=== PATIENT | male | born 1960 | race Caucasian/White ===

== ENCOUNTER 2017-03-02 15:20 | Inpatient (IN) | payer MEDICARE ==
[~2017-03-02] VITALS: Ht 180.3 cm; Wt 86.6 kg
--- NOTE | 2017-03-02 15:20 | NUR ---
Patient is here in our ER dept for admission to our [facility] mental health unit room 145C, pending medical clearance by our ER doctor.
[2017-03-02] MEDS ORDERED: BUPR8TAB4 SL (15:42)
[2017-03-02] MEDS ORDERED: LISINOPRIL PO (15:42)
[2017-03-02] MEDS ORDERED: SILD100T PO (15:42)
[2017-03-02] MEDS ORDERED: AMPH20TA3 PO (15:42)
[2017-03-02] MEDS ORDERED: TADA10TA PO (15:42)
[2017-03-02] MEDS ORDERED: FLUO40CA8 PO (15:42)
[2017-03-02] MEDS ORDERED: DIAZ10TA PO (15:42)
[2017-03-02] MEDS ORDERED: TADA5TAB2 PO (15:42)
[2017-03-02] MEDS ORDERED: WARF4TAB41 PO (15:42)
[2017-03-02] MEDS ORDERED: [UNRECOGNIZED DRUG - CODE] PO (15:42)
[2017-03-02] MEDS ORDERED: SULF1TAB48 PO (15:42)
[2017-03-02] MEDS ORDERED: FLUO20CA36 PO (15:42)
[2017-03-02] MEDS ORDERED: ONDA8TAB9 PO (15:42)
[2017-03-02] MEDS ORDERED: HYDROCHLOROTHIAZIDE PO (15:42)
--- NOTE | 2017-03-02 15:45 | NUR ---
Patient is medically cleared by Dr Moy, pending admission papers at this time.
--- NOTE | 2017-03-02 16:02 | NUR ---
Patient is now waiting for industrial security analyst to [facility].
[2017-03-02] MEDS ORDERED: MAG HYDROX/AL HYDROX/SIMETH 30 ML LIQUID UDC PO PRN (16:30)
[2017-03-02] MEDS ORDERED: MAGNESIUM HYDROXIDE 30 ML LIQUID UDC PO PRN (16:30)
--- NOTE | 2017-03-02 18:00 | NUR ---
1600 Admitted a 56 yrs. old male from ER per [facility], placed 5150 for DTS; DTR patient having erratic bizarre behavior, paranoid threatening accusation towards other in the apt. he karuna. At the hospital patient became agitated, combative throw the pills at staff and verbalized that " LUSI in following him", people are watching him and water is poisoned. Patient alert and ox3. Admission care done . Dr. Wei and Dr. Johnson notified of the admission.
[2017-03-02 20:15] VITALS: BP 134/80
--- NOTE | 2017-03-03 06:09 | NUR ---
GPS:NURSES NOTE Patient slept approx 8 hrs through the night. Pt. had a shower this morning. he is calm and cooperative at this time. Flat affect noted. No SI or HI noted or reported during the shift. He denies S/I, AH/VH at this time. we will continue to monitor.
[2017-03-03 07:30] VITALS: BP 140/94
[2017-03-03 15:54] VITALS: BP 142/87
[2017-03-03] MEDS: WARFARIN SODIUM 4 MG TABLET PO SCH (18:41)
[2017-03-03] MEDS: QUETIAPINE FUMARATE 25 MG TABLET PO SCH (20:27)
[2017-03-03 20:36] VITALS: BP 138/90
--- NOTE | 2017-03-04 06:29 | NUR ---
Patient slept approx 6.30hrs through the night.he is calm and cooperative at this time. he remains in his room. Flat affect noted. Denies SI or HI; AH/VH at this time. we will continue to monitor
[2017-03-04 07:22] LABS: BASOPHILS # (AUTO) 0.1 K/uL (0.0-8.0); BASOPHILS % (AUTO) 0.6 % (0.0-2.0); EOSINOPHILS # (AUTO) 0.2 K/uL (0.0-0.7); EOSINOPHILS % (AUTO) 2.8 % (0.0-7.0); HEMATOCRIT 47.6 % (40-50); HEMOGLOBIN 15.9 G/DL (14.0-18.0); LYMPHOCYTES # (AUTO) 2.3 K/UL (0.8-4.8); MEAN CORPUSCULAR HEMOGLOBIN 31.6 UUG (27.0-31.0); MEAN CORPUSCULAR HGB CONC 34 g/dL (32.0-37.0); MEAN CORPUSCULAR VOLUME 94.3 FL (82.0-92.0); MONOCYTES # (AUTO) 0.9 K/UL (0.1-1.30); MONOCYTES % (AUTO) 10.7 % (0.0-11.0); NEUTROPHILS # (AUTO) 5.2 K/UL (1.8-8.9); NEUTROPHILS % (AUTO) 59.9 % (38.5-71.5); PLATELET COUNT (AUTO) 213 K/UL (150-450); RED BLOOD CELL COUNT(AUTO) 5.05 MIL/UL (4.7-6.1); WHITE BLOOD COUNT (AUTO) 8.7 K/UL (4.0-11.2)
[2017-03-04 07:30] VITALS: BP 139/93
[2017-03-04 08:04] LABS: THYROID STIMULATING HORMONE 0.944 mIU/mL (0.358-3.740)
[2017-03-04] MEDS: FLUOXETINE HCL 20 MG CAPSULE PO SCH (08:50)
[2017-03-04] MEDS: QUETIAPINE FUMARATE 25 MG TABLET PO SCH ×2 (08:51→20:29)
[2017-03-04 09:25] LABS: BILIRUBIN,TOTAL 0.9 mg/dL (0.2-1.0); CREATININE 1.2 mg/dL (0.6-1.3); MAGNESIUM 2.2 mg/dL (1.8-2.4); PHOSPHOROUS 2.4 mg/dL (2.5-4.9)
[2017-03-04] MEDS ORDERED: NEUTRA PHOS PACKET PO ONE (15:30)
[2017-03-04 16:50] VITALS: BP 116/72
[2017-03-04] MEDS: WARFARIN SODIUM 4 MG TABLET PO SCH (17:30)
[2017-03-04 20:53] VITALS: BP 140/93
--- NOTE | 2017-03-04 22:00 | NUR ---
received to care, sitting by self, in the activity room, initially pleasant, and appropriate, upon approach. compliant with medications, and staff direction. pt was seen by Dr Johnson. he seemed suspicious and paranoid, at that point. stated staff is "using smoke and mirrors", when asked about his medical history. remained evasive after the doctor left. fluids and snack was given, but he declined any PRN medications. stated something about the LUIS, but declined to elaborate, when questioned. as of 2199, he is in bed, quietly. no distress noted. will continue to monitor closely.
[2017-03-04] MEDS: ZOLPIDEM 5 MG TABLET PO PRN (23:38)
--- NOTE | 2017-03-04 23:38 | NUR ---
remains restless. pacing the hallway occasionally, the lying back in bed. PRN ambien was given, at this time. no distress noted. will continue to monitor closely.
--- NOTE | 2017-03-05 00:15 | NUR ---
appears to be asleep. no distress noted.
--- NOTE | 2017-03-05 06:00 | NUR ---
slept 5 hours, total. has been awake, intermittently, all night. came to the nurses station 4 or 5 times, to know what time it was. redirected back to bed, each time. as of 0600, he appears to be asleep. no distress noted. will continue to monitor closely.
[2017-03-05 07:22] LABS: PHOSPHOROUS 2.8 mg/dL (2.5-4.9); POTASSIUM 4.1 mmol/L (3.5-5.1)
[2017-03-05 07:57] VITALS: BP 134/95
[2017-03-05] MEDS ORDERED: QUETIAPINE FUMARATE 25 MG TABLET PO SCH (09:00)
[2017-03-05] MEDS: FLUOXETINE HCL 20 MG CAPSULE PO SCH (09:05)
--- NOTE | 2017-03-05 13:41 | NUR ---
Initial discharge instructions: The patient resides at [[address] [place] [address] [place] [address]; ] independently. The patient stated that he would like to return home upon discharge. SW will speak with the patient, family, and MD regarding most appropriate discharge plans. SS will form a safe and proper discharge.
[2017-03-05 16:42] VITALS: BP 143/99
[2017-03-05] MEDS: WARFARIN SODIUM 4 MG TABLET PO SCH (17:09)
[2017-03-05] MEDS ORDERED: WARFARIN SODIUM 1 MG TABLET PO ONE (17:45)
--- NOTE | 2017-03-05 17:46 | NUR ---
GPS/RN- LOVENOX ORDERS AND COUMADIN Discussed with patient his concern, patient with history of Factor V Leiden (Blood Clotting Disorder), patient advised of current Coumadin order for 4mg, INR today 1.09. patient advised that he is usually on a combination of Coumadin and Lovenox when his INR is below therapeutic level. Contacted Dr Johnson about patients concern, received orders, patient to receive 5mg of Coumadin today. Already administered 4mg of Coumadin to patient today , order received for 1mg of Coumadin now to complete 5mg dose. Also received for pharmacy to dose Lovenox q12hr, spoke with Gerber Pharmicist of orders . orders received and carried out. patient will be discontinued off of Lovenox once he reaches therapeutic level. Patient advised of new orders. questions and concerns addressed.
[2017-03-05 20:00] VITALS: BP 145/97
[2017-03-05] MEDS: QUETIAPINE FUMARATE 25 MG TABLET PO SCH (20:24)
[2017-03-05] MEDS: ENOXAPARIN SODIUM 100 MG/ML DISP.SYRIN SQ SCH (20:29)
--- NOTE | 2017-03-05 21:06 | NUR ---
Pt received in his room lying in bed awake, guarded, depressed, stated he has not matias able to get in touch with ex or son,since he was admitted 4 days ago, no interaction with peers noted, med compliant,will continue to monitor closely.
[2017-03-05] MEDS: LORAZEPAM 1 MG TABLET PO PRN (23:57)
[2017-03-06 07:30] VITALS: BP 142/102
[2017-03-06] MEDS: FLUOXETINE HCL 20 MG CAPSULE PO SCH (08:54)
[2017-03-06] MEDS: ENOXAPARIN SODIUM 100 MG/ML DISP.SYRIN SQ SCH ×2 (08:56→20:35)
[2017-03-06] MEDS: QUETIAPINE FUMARATE 25 MG TABLET PO SCH ×3 (09:01→20:36)
[2017-03-06 10:51] VITALS: BP 135/102
[2017-03-06] MEDS: LISINOPRIL 20 MG TABLET PO SCH (11:44)
[2017-03-06] MEDS: HYDROCHLOROTHIAZIDE 12.5 MG CAPSULE PO SCH (11:44)
[2017-03-06 15:09] VITALS: BP 152/96
[2017-03-06] MEDS: ACETAMINOPHEN 325 MG TABLET PO PRN (15:21)
[2017-03-06] MEDS: LORAZEPAM 1 MG TABLET PO PRN ×2 (15:22→21:28)
[2017-03-06] MEDS ORDERED: WARFARIN SODIUM 1 MG TABLET PO ONE (17:00)
[2017-03-06] MEDS ORDERED: WARFARIN SODIUM 4 MG TABLET PO ONE (17:35)
[2017-03-06] MEDS: COUMADIN VARIABLE DOSE REMINDE XX SCH (17:35)
[2017-03-06 20:23] VITALS: BP 132/98
--- NOTE | 2017-03-06 22:00 | NUR ---
received to care, lying his bed, isolative, but pleasant upon approach. states he is upset, because he has not been getting his subox dose, that he was taking at home. he states he is worried about having withdrawals. he was told that staff would let his vp home health know, when he makes rounds, next. PRN ativan was given at 2127. as of 2199, he remains in bed, in no acute distress. will continue to monitor closely.
[2017-03-06] MEDS: ZOLPIDEM 5 MG TABLET PO PRN (23:24)
--- NOTE | 2017-03-06 23:24 | NUR ---
pt remains awake. states that he is unable to sleep; his room mate is restless, and wandering the room. PRN kristyn was given, and he was taken to an empty room, for the night. currently lying in bed. will continue to monitor closely.
--- NOTE | 2017-03-07 00:30 | NUR ---
appears to be asleep. no distress noted.
[2017-03-07] MEDS: ACETAMINOPHEN 325 MG TABLET PO PRN (01:12)
[2017-03-07 07:30] VITALS: BP 159/94
[2017-03-07] MEDS: HYDROCHLOROTHIAZIDE 12.5 MG CAPSULE PO SCH (09:45)
[2017-03-07] MEDS: QUETIAPINE FUMARATE 25 MG TABLET PO SCH ×2 (09:45→18:06)
[2017-03-07] MEDS: FLUOXETINE HCL 20 MG CAPSULE PO SCH (09:45)
[2017-03-07] MEDS: LISINOPRIL 20 MG TABLET PO SCH (09:46)
[2017-03-07] MEDS: ENOXAPARIN SODIUM 100 MG/ML DISP.SYRIN SQ SCH ×2 (09:55→20:58)
[2017-03-07 15:00] VITALS: BP 158/95
[2017-03-07] MEDS ORDERED: WARFARIN SODIUM 4 MG TABLET PO ONE ×2 (17:00→17:45)
[2017-03-07 20:31] VITALS: BP 134/104
[2017-03-07] MEDS ORDERED: QUETIAPINE FUMARATE 25 MG TABLET PO SCH (21:00)
[2017-03-07] MEDS: LORAZEPAM 1 MG TABLET PO PRN (22:43)
[2017-03-08] MEDS: ZOLPIDEM 5 MG TABLET PO PRN (00:31)
--- NOTE | 2017-03-08 06:24 | NUR ---
GPS/NSG Patient observed at nursing station, redirected several times, requesting medication. Patient stated that he had been taking medication for sixteen years. Patient visibly upset with staff complaining about not getting his medication. Prn administered for anxiety with ineffective outcome. Prn administered for insomnia with ineffective outcome. Patient slept a total of two and a half hours. Will continue to monitor for safety.
[2017-03-08 07:30] VITALS: BP 142/98
[2017-03-08] MEDS: HYDROCHLOROTHIAZIDE 12.5 MG CAPSULE PO SCH (09:00)
[2017-03-08] MEDS: QUETIAPINE FUMARATE 25 MG TABLET PO SCH ×2 (09:00→17:39)
[2017-03-08] MEDS: LISINOPRIL 20 MG TABLET PO SCH (09:01)
[2017-03-08] MEDS: FLUOXETINE HCL 20 MG CAPSULE PO SCH (09:01)
[2017-03-08] MEDS: METOPROLOL TARTRATE 25 MG TABLET PO SCH ×2 (09:01→20:03)
[2017-03-08] MEDS: ENOXAPARIN SODIUM 100 MG/ML DISP.SYRIN SQ SCH ×2 (09:03→20:05)
[2017-03-08 15:00] VITALS: BP 140/93
[2017-03-08] MEDS ORDERED: WARFARIN SODIUM 4 MG TABLET PO ONE ×2 (17:00)
[2017-03-08] MEDS: QUETIAPINE FUMARATE 100 MG TABLET PO SCH (20:02)
[2017-03-08] MEDS: ACETAMINOPHEN 325 MG TABLET PO PRN (20:07)
--- NOTE | 2017-03-08 20:13 | NUR ---
GPS: PATIENT C/O HEADACHE.TYLENOL 650 MG PO GIVEN PER PATIENT REQUESTED.
[2017-03-08 20:55] VITALS: BP 125/80
--- NOTE | 2017-03-08 21:15 | NUR ---
GPS: PATIENT STATED I AM FEELING BETTER NOW. PRN EFFECTIVE.
[2017-03-08] MEDS: LORAZEPAM 1 MG TABLET PO PRN (22:27)
--- NOTE | 2017-03-08 22:27 | NUR ---
GPS: PATIENT C/O ANXIETY. ATIVAN 1 MG PO GIVEN FOR ANXIETY.
--- NOTE | 2017-03-08 23:28 | NUR ---
GPS: PATIENT STATED I AMFEELING CALM NOW. PRN EFFECTIVE FOR ANXIETY.
[2017-03-09] MEDS: ZOLPIDEM 5 MG TABLET PO PRN (00:26)
--- NOTE | 2017-03-09 00:27 | NUR ---
GPS: PATIENT C/O INSOMNIA. AMBIEN 5 MG PO GIVEN FOR INSOMNIA.
--- NOTE | 2017-03-09 01:27 | NUR ---
GPS: PATIENT SLEEPING EYE CLOSE. PRN EFFECTIVE FOR SLEEP.
--- NOTE | 2017-03-09 06:48 | NUR ---
GPS: REMAIN CALM AND COOPERATIVE AFTER ATIVAN GIVEN. SLEPT ONLY ONE HR, AFTER SLEEPING MEDS GIVEN. PATIENT SLEPT IN ROOM 142 LAST NIGHT, PATIENT C/O HIS ROOM MATE IS VERY NOISY SNORING VERY LOUD.CHARGE NURSE AWARE.CONTINUE PLAN OF CARE.
[2017-03-09 07:30] VITALS: BP 135/80
[2017-03-09] MEDS: LISINOPRIL 20 MG TABLET PO SCH (09:09)
[2017-03-09] MEDS: HYDROCHLOROTHIAZIDE 12.5 MG CAPSULE PO SCH (09:09)
[2017-03-09] MEDS: QUETIAPINE FUMARATE 25 MG TABLET PO SCH ×2 (09:09→16:10)
[2017-03-09] MEDS: FLUOXETINE HCL 20 MG CAPSULE PO SCH (09:09)
[2017-03-09] MEDS: METOPROLOL TARTRATE 25 MG TABLET PO SCH ×2 (09:10→20:31)
[2017-03-09] MEDS: ENOXAPARIN SODIUM 100 MG/ML DISP.SYRIN SQ SCH ×2 (09:16→20:40)
[2017-03-09] MEDS: COUMADIN VARIABLE DOSE REMINDE XX SCH (16:11)
[2017-03-09 16:33] VITALS: BP 141/88
[2017-03-09] MEDS ORDERED: WARFARIN SODIUM 4 MG TABLET PO ONE (17:00)
[2017-03-09] MEDS: QUETIAPINE FUMARATE 100 MG TABLET PO SCH (20:31)
[2017-03-09 20:58] VITALS: BP 132/89
--- NOTE | 2017-03-09 21:55 | NUR ---
Given 90mg Lovenox SC as per MD ordered. we will checks PT/ INR in the morning.
[2017-03-09] MEDS: LORAZEPAM 1 MG TABLET PO PRN (22:25)
--- NOTE | 2017-03-10 00:27 | NUR ---
At approx 2220, patient requested PO PRN medication for anxiety. Ativan 1mg PO PRN for anxiety was given at 2225. Patient was also advised to use his coping skills and relaxation technics. we will continue to monitor.
[2017-03-10] MEDS: ZOLPIDEM 5 MG TABLET PO PRN ×2 (01:44→23:26)
--- NOTE | 2017-03-10 06:28 | NUR ---
Ambien 5mg PO PRN for insomnia was given at 0144. However, was only effective for 30 minutes. pt slept 30 minutes through the night.
[2017-03-10 07:30] VITALS: BP 142/95
[2017-03-10] MEDS: ENOXAPARIN SODIUM 100 MG/ML DISP.SYRIN SQ SCH ×2 (09:20→20:09)
[2017-03-10] MEDS: HYDROCHLOROTHIAZIDE 12.5 MG CAPSULE PO SCH (09:21)
[2017-03-10] MEDS: FLUOXETINE HCL 20 MG CAPSULE PO SCH (09:21)
[2017-03-10] MEDS: QUETIAPINE FUMARATE 25 MG TABLET PO SCH ×2 (09:21→16:46)
[2017-03-10] MEDS: LISINOPRIL 20 MG TABLET PO SCH (09:22)
[2017-03-10] MEDS: METOPROLOL TARTRATE 25 MG TABLET PO SCH ×2 (09:22→20:07)
[2017-03-10 16:00] VITALS: BP 152/94
[2017-03-10] MEDS ORDERED: WARFARIN SODIUM 7.5 MG TABLET PO ONE (17:00)
[2017-03-10] MEDS ORDERED: WARFARIN SODIUM 2 MG TABLET PO ONE (17:00)
[2017-03-10] MEDS: COUMADIN VARIABLE DOSE REMINDE XX SCH (17:15)
[2017-03-10 20:00] VITALS: BP 120/94
[2017-03-10] MEDS: QUETIAPINE FUMARATE 100 MG TABLET PO SCH (20:08)
[2017-03-10] MEDS ORDERED: QUETIAPINE FUMARATE 100 MG TABLET PO ONE (22:15)
--- NOTE | 2017-03-10 23:27 | NUR ---
GPS: PATIENT C/O INSOMNIA. AMBIEN 5 MG PO GIVEN.
--- NOTE | 2017-03-11 00:27 | NUR ---
GPS: PATIENT SLEEPING NOW. PRN EFFECTIVE.
--- NOTE | 2017-03-11 06:15 | NUR ---
GPS: REMAIN CALM AND COOPERATIVE WITH MEDS AND CARE.SLEPT 3 HRS THROUGH THE NIGHT AFTER GIVEN AMBIEN 5 MG FOR SLEEP. CONTINUE PLAN OF CARE.
--- NOTE | 2017-03-11 07:48 | NUR ---
PT RECEIVED LYING IN BED. REFUSED AM BLOOD DRAW FOR PT/INR. RISKS AND BENEFITS EXPLAINED. STATES "STROKE SHMOKE" AND "I'M NOT EKSHIA CORNEJO, YOU HAVE THE WRONG PERSON." REORIENTED TO REALITY. PT STATES EVERYONE IS GIVING HIM "CONFLICTING REPORTS", BUT UNABLE TO EXPLAIN SPECIFICS AT THIS TIME.
[2017-03-11] MEDS: FLUOXETINE HCL 20 MG CAPSULE PO SCH (09:24)
[2017-03-11] MEDS: LISINOPRIL 20 MG TABLET PO SCH (09:26)
[2017-03-11] MEDS: HYDROCHLOROTHIAZIDE 12.5 MG CAPSULE PO SCH (09:26)
[2017-03-11] MEDS: METOPROLOL TARTRATE 25 MG TABLET PO SCH ×2 (09:26→20:47)
[2017-03-11] MEDS: ENOXAPARIN SODIUM 100 MG/ML DISP.SYRIN SQ SCH ×2 (09:27→21:00)
[2017-03-11] MEDS: QUETIAPINE FUMARATE 25 MG TABLET PO SCH (12:24)
[2017-03-11] MEDS ORDERED: WARFARIN SODIUM 4 MG TABLET PO ONE (17:00)
[2017-03-11] MEDS: COUMADIN VARIABLE DOSE REMINDE XX SCH (17:50)
[2017-03-11] MEDS: LORAZEPAM 1 MG TABLET PO PRN (19:48)
[2017-03-11] MEDS ORDERED: QUETIAPINE FUMARATE 200 MG TABLET PO SCH (21:00)
[2017-03-11] MEDS ORDERED: QUETIAPINE FUMARATE 100 MG TABLET PO SCH (21:00)
--- NOTE | 2017-03-11 21:00 | NUR ---
pt refused his bedtime dose of lovenox, even after being explained the risks of refusing.
[2017-03-11 21:31] VITALS: BP 140/89
--- NOTE | 2017-03-11 22:00 | NUR ---
received to care, sitting in the activity room watching tv, isolative, but pleasant upon approach. PRN ativan was given at 1947, for anxiety. by 2099, he stated good relief. as of 2199, he appears to be asleep, in bed. no distress noted. will continue to monitor closely.
--- NOTE | 2017-03-12 06:00 | NUR ---
slept well last night, 8 hours, total. continues to sleep, but easy to awaken. no distress noted. will continue to monitor closely.
[2017-03-12] MEDS: FLUOXETINE HCL 20 MG CAPSULE PO SCH (09:34)
[2017-03-12] MEDS: LISINOPRIL 20 MG TABLET PO SCH (09:34)
[2017-03-12 09:35] VITALS: BP 120/97
[2017-03-12] MEDS: HYDROCHLOROTHIAZIDE 12.5 MG CAPSULE PO SCH (09:35)
[2017-03-12] MEDS: METOPROLOL TARTRATE 25 MG TABLET PO SCH (09:35)
[2017-03-12] MEDS: ENOXAPARIN SODIUM 100 MG/ML DISP.SYRIN SQ SCH (09:35)
--- NOTE | 2017-03-12 11:35 | NUR ---
GPS: Nursing Notes: Refuse Picture to be taken: Patient refusing to take picture of his buttock, stated, "You are not taking a picture of my ass again...", continue with discharge plan.
--- NOTE | 2017-03-12 11:43 | NUR ---
DC Note: The patient will be discharged today to [facility] ([facility]) [[address], [place] [address] ]. Spoke with Chana in admissions at the facility who stated that they will be accepting the patient today. Chana stated that they will provide transportation for the patient to the facility, awaiting medicinal plant picker time. BLAKE spoke with the patient and he is aware and agreeable with the discharge plan. BLAKE spoke with the patient's ex- Cori Manrique (per his permission) and informed her of the patient's discharge plan. The patient will follow-up at the facility with gun perforator loader Dr. Vinnie Dyson and psychiatrist Dr. Isabella Nguyen. The patient was provided with the brief intervention for substance abuse and was referred to [facility] , [facility] , and [facility] .
[2017-03-12] MEDS: QUETIAPINE FUMARATE 25 MG TABLET PO SCH (12:38)
[2017-03-12] MEDS: COUMADIN VARIABLE DOSE REMINDE XX SCH (16:57)
[2017-03-12] MEDS ORDERED: WARFARIN SODIUM 4 MG TABLET PO ONE (17:00)
--- NOTE | 2017-03-12 18:33 | NUR ---
GPS: Nursing Notes: Discharge Notes: Patient awake and responding to his name, cooperative with nursing care and compliant with his medications, denies any SI/HI, denies any AH/VH, denies any pain or discomfort, denies any SOB, discharge to [facility] at [address], [place] [address] , report given to Tiffanie RN mixing supervisor. The patient will follow-up at the facility with aggregate conveyor operator Dr. Vinnie Dyson and psychiatrist Dr. Isabella Nguyen. The patient was provided with the brief intervention for substance abuse and was referred to [facility] , [facility] , and [facility] .
== END 2017-03-12 18:30 | DRG 885 ==
LOC: ER 15:20 → GPS 15:46
PROVIDERS: ADMIT Psychiatry & Neurology Psychiatry; ATTEND Psychiatry & Neurology Psychiatry
DX: F32.3 Major depressive disorder, single episode, severe with psychotic features (principal); D68.2 Hereditary deficiency of other clotting factors; F11.20 Opioid dependence, uncomplicated; F19.259 Other psychoactive substance dependence with psychoactive substance-induced psychotic disorder, unspecified; F29 Unspecified psychosis not due to a substance or known physiological condition; E87.6 Hypokalemia; Z86.718 Personal history of other venous thrombosis and embolism; Z79.01 Long term (current) use of anticoagulants; Z91.14 Patient's other noncompliance with medication regimen; I10 Essential (primary) hypertension; F60.0 Paranoid personality disorder
CPT/HCPCS: 36415; 83735; 84100; 84443; 85025; 85610; 97161; J1650

== ENCOUNTER 2017-03-14 18:08 | Inpatient (IN) | payer MEDICARE, OTHER ==
[~2017-03-14] VITALS: Ht 180.3 cm; Wt 88.5 kg
[~2017-03-14 18:08] MED LIST: BUPR8TAB4 SL; HYDROCHLOROTHIAZIDE PO; LISINOPRIL PO; ONDA8TAB9 PO; SILD100T PO; SULF1TAB48 PO; TADA10TA PO; TADA5TAB2 PO; WARF4TAB41 PO; [UNRECOGNIZED DRUG - CODE] PO
--- NOTE | 2017-03-14 18:11 | NUR ---
lilia duncan at bedside to evaluate the pt.
[2017-03-14] MEDS ORDERED: SENN-167 PO (18:23)
[2017-03-14] MEDS ORDERED: ENOX40DI SQ (18:23)
[2017-03-14] MEDS ORDERED: MAGN400O6 PO (18:23)
[2017-03-14] MEDS ORDERED: WARF4TAB41 PO (18:23)
[2017-03-14] MEDS ORDERED: LISI-603 PO (18:23)
[2017-03-14] MEDS ORDERED: METO-302 PO (18:23)
[2017-03-14] MEDS ORDERED: BISA5TAB13 PR (18:23)
[2017-03-14] MEDS ORDERED: ACET-2154 PO (18:23)
[2017-03-14 19:32] LABS: BASOPHILS # (AUTO) 0.1 K/uL (0.0-8.0); BASOPHILS % (AUTO) 0.9 % (0.0-2.0); EOSINOPHILS # (AUTO) 0.1 K/uL (0.0-0.7); EOSINOPHILS % (AUTO) 0.7 % (0.0-7.0); HEMATOCRIT 53.3 % (40-50); LYMPHOCYTES % (AUTO) 18.4 % (20.5-51.5); MEAN CORPUSCULAR HEMOGLOBIN 31.6 UUG (27.0-31.0); MEAN CORPUSCULAR HGB CONC 34 g/dL (32.0-37.0); MEAN CORPUSCULAR VOLUME 92.7 FL (82.0-92.0); MONOCYTES # (AUTO) 0.7 K/UL (0.1-1.30); NEUTROPHILS # (AUTO) 8.1 K/UL (1.8-8.9); PLATELET COUNT (AUTO) 249 K/UL (150-450); RED BLOOD CELL COUNT(AUTO) 5.75 MIL/UL (4.7-6.1)
[2017-03-14 19:34] LABS: HEMOGLOBIN 18.2 G/DL (14.0-18.0)
[2017-03-14 19:44] LABS: CARBON DIOXIDE 26 mmol/L (21-32); CHLORIDE 101 mmol/L (98-107); CREATININE 1.4 mg/dL (0.6-1.3); GLUCOSE 95 mg/dL (74-106); POTASSIUM 4.1 mmol/L (3.5-5.1); UREA NITROGEN, BLOOD 26 mg/dL (7-18)
[2017-03-14 19:47] LABS: BAND % (MANUAL) 2 % (0-10); EOSINOPHILS % (MANUAL) 2 % (0-8); LYMPHOCYTES % (MANUAL) 19 % (20-40); MONOCYTES % (MANUAL) 8 % (2-10); NEUTROPHILS % (MANUAL) 69 % (42-75)
[2017-03-14 19:50] LABS: ACETAMINOPHEN < 2.0 ug/mL (10-30); ALANINE AMINOTRANSFERASE 85 U/L (16-63); ALKALINE PHOSPHATASE 74 U/L (50-136); ASPARTATE AMINOTRANSFERASE 29 U/L (15-37); BILIRUBIN,TOTAL 0.8 mg/dL (0.2-1.0); TOTAL PROTEIN, SERUM 8.2 g/dL (6.4-8.2)
[2017-03-14 19:56] LABS: *BILIRUBIN,URIN NEGATIVE (NEGATIVE); *BLOOD, URINE NEGATIVE (NEGATIVE); *CLARITY,URINE CLEAR (CLEAR); *COLOR,URINE YELLOW (YELLOW); *KETONES,URINE NEGATIVE (NEGATIVE); *PROTEIN,URINE NEGATIVE (NEGATIVE); *UROBILINOGEN,URINE 0.2 E.U./dl (NORMAL); LEUKOCYTE ESTERASE ,URINE NEGATIVE (NEGATIVE); NITRITE, URINE NEGATIVE (NEGATIVE); UGLUCOSE NEGATIVE (NEGATIVE)
[2017-03-14 19:58] LABS: ETHANOL < 3 MG/DL (0-0)
[2017-03-14 20:07] LABS: *AMPHETAMINE, URINE NEGATIVE (NEGATIVE); *BARBITURATE, URINE NEGATIVE (NEGATIVE); *CANNABINOID, URINE NEGATIVE (NEGATIVE); *COCCAINE, URINE NEGATIVE (NEGATIVE); *OPIATE, URINE NEGATIVE (NEGATIVE); *PHENCYCLIDINE SCREEN,URINE NEGATIVE (NEGATIVE)
[2017-03-14 20:08] LABS: MUCUS,URINE FEW /LPF (0-FEW); WBC,URINE 0-3 /HPF (0-3)
--- NOTE | 2017-03-14 21:25 | NUR ---
Pt. admitted to GPS, under care of Dr. Wei Belongs List completed
[2017-03-14] MEDS ORDERED: MAG HYDROX/AL HYDROX/SIMETH 30 ML LIQUID UDC PO PRN (21:45)
[2017-03-14] MEDS ORDERED: MAGNESIUM HYDROXIDE 30 ML LIQUID UDC PO PRN (21:45)
--- NOTE | 2017-03-14 23:43 | NUR ---
PATIENT RECEIVED VIA GURNEY FROM ER, PATIENT ALERT/ORIENTED X2 WITH CONFUSION NOTED. PATIENT IS DISORIENTED, RESPONDING TO INTERNAL STIMULI. PATIENT DENIES SI OR ANY INTEND TO HARM OTHERS. PATIENT IS UNPREDICTABLE. PATIENT APPEARANCE UNKEMPT, SHOWERED THIS EVENING. CONTRABAND CHECK NONE PRESENT PATIENT CHANGED INTO HOSPITAL GOWN, PANTS AND SOCKS. SKIN INTACT.PATIENT ABLE TO SIGN ADMITTING PAPERS, DOES NOT WANT ANY FAMILY MEMBERS CONTACTED. PATIENT HAS BEEN COOPERATIVE, PATIENT STATES " I JUST WANTED TO COME BACK HERE." PATIENT ORIENTED TO ROOM AND BATHROOM, PATIENT GIVEN PATIENT'S RIGHT'S HAND BOOK AND ADVISEMENT. BED IN LOWEST POSITION, BED LOCKED.
[2017-03-15 07:30] VITALS: BP 138/88
--- NOTE | 2017-03-15 11:00 | NUR ---
Floor Service Worker Spring: I have reviewed this patient's psychosocial dated 03/05/2017 and can attest to the accuracy of the information therein. There have been no changes since his last assessment.
[2017-03-15] MEDS: LORAZEPAM 0.5 MG TABLET PO PRN (11:18)
[2017-03-15] MEDS ORDERED: ENOXAPARIN SODIUM 40 MG/0.4 ML DISP.SYRIN SQ SCH ×2 (13:15→21:00)
[2017-03-15] MEDS ORDERED: MAGNESIUM HYDROXIDE 30 ML LIQUID UDC PO PRN (13:15)
[2017-03-15] MEDS ORDERED: WARFARIN SODIUM 4 MG TABLET PO ONE (17:00)
[2017-03-15 17:09] VITALS: BP 123/95
[2017-03-15 20:20] VITALS: BP 134/95
[2017-03-15] MEDS: QUETIAPINE FUMARATE 200 MG TABLET PO SCH (20:51)
[2017-03-15] MEDS: DIVALPROEX 250 MG TABLET.DR PO SCH (20:51)
[2017-03-15] MEDS: METOPROLOL SUCCINATE XL 25 MG TAB.SR.24H PO SCH (20:52)
[2017-03-15] MEDS: ENOXAPARIN SODIUM 80 MG/0.8 ML DISP.SYRIN SQ SCH (20:54)
[2017-03-16 07:11] LABS: CREATININE 1.3 mg/dL (0.6-1.3); MAGNESIUM 2.2 mg/dL (1.8-2.4); PHOSPHOROUS 3.4 mg/dL (2.5-4.9); POTASSIUM 4.3 mmol/L (3.5-5.1)
[2017-03-16 07:21] LABS: BASOPHILS % (AUTO) 0.6 % (0.0-2.0); EOSINOPHILS # (AUTO) 0.1 K/uL (0.0-0.7); EOSINOPHILS % (AUTO) 1.1 % (0.0-7.0); HEMATOCRIT 50.7 % (40-50); HEMOGLOBIN 17.2 G/DL (14.0-18.0); LYMPHOCYTES % (AUTO) 26.1 % (20.5-51.5); MEAN CORPUSCULAR HEMOGLOBIN 31.7 UUG (27.0-31.0); MEAN CORPUSCULAR HGB CONC 34 g/dL (32.0-37.0); MEAN CORPUSCULAR VOLUME 93.6 FL (82.0-92.0); MONOCYTES # (AUTO) 0.7 K/UL (0.1-1.30); MONOCYTES % (AUTO) 9.2 % (0.0-11.0); PLATELET COUNT (AUTO) 212 K/UL (150-450); RED BLOOD CELL COUNT(AUTO) 5.42 MIL/UL (4.7-6.1)
[2017-03-16 07:25] LABS: WHITE BLOOD COUNT (AUTO) 7.8 K/UL (4.0-11.2)
[2017-03-16 07:30] VITALS: BP 133/83
[2017-03-16] MEDS: METOPROLOL SUCCINATE XL 25 MG TAB.SR.24H PO SCH ×2 (09:04→21:11)
[2017-03-16] MEDS: DIVALPROEX 250 MG TABLET.DR PO SCH ×2 (09:04→21:11)
[2017-03-16] MEDS: FLUOXETINE HCL 20 MG CAPSULE PO SCH (09:04)
[2017-03-16] MEDS: SENNOSIDES 1 TABLET PO SCH (09:04)
[2017-03-16] MEDS: LISINOPRIL 20 MG TABLET PO SCH (09:05)
[2017-03-16] MEDS: ENOXAPARIN SODIUM 80 MG/0.8 ML DISP.SYRIN SQ SCH ×2 (09:06→21:00)
--- NOTE | 2017-03-16 13:00 | NUR ---
PT WENT FOR A PROCEDURE OF CT SCAN OF HEAD, RESULTS WERE NEGATIVE.
[2017-03-16] MEDS ORDERED: ACETAMINOPHEN 325 MG TABLET PO PRN (13:15)
[2017-03-16 15:25] VITALS: BP 120/78
[2017-03-16] MEDS ORDERED: COUMADIN VARIABLE DOSE REMINDE XX SCH (17:00)
[2017-03-16] MEDS: WARFARIN SODIUM 4 MG TABLET PO SCH (17:46)
--- NOTE | 2017-03-16 17:57 | NUR ---
PT TOOK PM MED, EATING DINNER, CALM AND QUIET, NO DISTRESS NOTED, WILL GIVE REPORT TO UTILIZATION MANAGER NURSE.
[2017-03-16 20:07] VITALS: BP 119/77
[2017-03-16] MEDS: QUETIAPINE FUMARATE 200 MG TABLET PO SCH (21:11)
[2017-03-17 07:30] VITALS: BP 119/79
[2017-03-17] MEDS: SENNOSIDES 1 TABLET PO SCH (09:00)
[2017-03-17] MEDS: FLUOXETINE HCL 20 MG CAPSULE PO SCH (09:19)
[2017-03-17] MEDS: METOPROLOL SUCCINATE XL 25 MG TAB.SR.24H PO SCH ×2 (09:19→20:13)
[2017-03-17] MEDS: DIVALPROEX 250 MG TABLET.DR PO SCH (09:19)
[2017-03-17] MEDS: LISINOPRIL 20 MG TABLET PO SCH (09:20)
[2017-03-17] MEDS: ENOXAPARIN SODIUM 80 MG/0.8 ML DISP.SYRIN SQ SCH ×2 (09:25→20:13)
[2017-03-17 15:19] VITALS: BP 128/83
[2017-03-17] MEDS: WARFARIN SODIUM 4 MG TABLET PO SCH (16:54)
[2017-03-17] MEDS: QUETIAPINE FUMARATE 200 MG TABLET PO SCH (20:10)
[2017-03-17] MEDS: DIVALPROEX 125 MG TABLET.DR PO SCH (20:12)
[2017-03-17 20:56] VITALS: BP 132/78
[2017-03-17] MEDS ORDERED: DIVALPROEX 250 MG TABLET.DR PO SCH (21:00)
--- NOTE | 2017-03-17 21:24 | NUR ---
PATIENT RECEIVED IN ACTIVITIES ROOM WATCHING T.V.PATIENT IN AND OUT OF ROOM PACING HALLWAY PARANOID BEHAVIOR, WITH INCREASED ANXIETY NOTED. PATIENT COMPLIANT WITH MEDICATION AND LOVENOX SQ. NO AGGRESSIVE OR COMBATIVE BEHAVIOR, WILL CONTINUE TO MONITOR AND REDIRECT. PATIENT DENIES PAIN AT THIS TIME,WILL CONTINUE TO MONITOR. PATIENT DENIES SI, WILL CONTINUE TO MONITOR, PATIENT ENCOURAGED TO EXPRESS FEELINGS AND CONCERNS.
[2017-03-17] MEDS: ZOLPIDEM 5 MG TABLET PO PRN (22:25)
[2017-03-18 07:30] VITALS: BP 130/91
[2017-03-18] MEDS: FLUOXETINE HCL 20 MG CAPSULE PO SCH ×2 (09:00→14:33)
[2017-03-18] MEDS: METOPROLOL SUCCINATE XL 25 MG TAB.SR.24H PO SCH ×2 (09:00→14:34)
[2017-03-18] MEDS: DIVALPROEX 125 MG TABLET.DR PO SCH ×2 (09:00→14:32)
[2017-03-18] MEDS: ENOXAPARIN SODIUM 80 MG/0.8 ML DISP.SYRIN SQ SCH ×2 (09:00→14:40)
[2017-03-18] MEDS: LISINOPRIL 20 MG TABLET PO SCH ×2 (09:00→14:33)
[2017-03-18] MEDS: SENNOSIDES 1 TABLET PO SCH (09:38)
--- NOTE | 2017-03-18 10:00 | NUR ---
patient refused am medications very angry adamently refused !. isolative in room most of shift without any verbalization
--- NOTE | 2017-03-18 14:20 | NUR ---
patient threw chair on floor in day room stating some one else did it
[2017-03-18] MEDS: LORAZEPAM 0.5 MG TABLET PO PRN (14:31)
--- NOTE | 2017-03-18 14:40 | NUR ---
patient very agitated at this time and agreed to take am dose of routine meds plus ativan mg along with lovenox 80mg this is unscheduled due to refusal this am charge nurse aware of situation.pt very mad and angry without self dis closure , will continue to monitor for safety Addendum: 03/18/17 at 1448 by KLARISSA MENEZES RN ativan 0.5mg fortune given
[2017-03-18 17:09] VITALS: BP 140/91
[2017-03-18] MEDS: WARFARIN SODIUM 4 MG TABLET PO SCH (17:49)
[2017-03-18 20:00] VITALS: BP 132/88
[2017-03-18] MEDS ORDERED: QUETIAPINE FUMARATE 200 MG TABLET PO SCH (21:00)
[2017-03-18] MEDS ORDERED: QUETIAPINE FUMARATE 100 MG TABLET PO SCH (21:00)
--- NOTE | 2017-03-19 05:36 | NUR ---
NSG/GPS-PHARMACY PATIENT FIRST OBSERVED AWAKE IN ROOM LYING IN BED. PATIENT DEMONSTRATED NO AGITATION, PATIENT REFUSED A.M. MEDICATION, A.M. MEDICATION ADMINISTERED AT A LATER HOUR. DURING HS MEDICATION STAFF OBSERVED SIX HOURS HAD PASSED ON MEDICATION ORDERED Q12 HOURS THUS HOLDING DEPAKOTE, METOPROLOL. PATIENT REFUSED LOVENOX. CONTINUE TO MONITOR FOR SAFETY. PATIENT SLEPT THROUGH NIGHT WITH DISTRESS, APPEARED TO HAVE HAD NIGHTMARES WITH EPISODES OF YELLING, WHEN APPROACHED PATIENT EXPRESSED TO STAFF HE WAS INDEED HAVING BAD DREAMS, HOWEVER CONTINUED TO SLEEP. PATIENT DENIES SUICIDAL IDEATION OR INTENT. WILL CONTINUE TO TEACH THE IMPORTANCE OF MEDICATION COMPLIANCE. Addendum: 03/19/17 at 0644 by TATYANA GARCIA RN PATIENT REFUSED PT/INR LAB DRAW THIS A.M.
[2017-03-19 07:30] VITALS: BP 114/84
[2017-03-19] MEDS ORDERED: DIVALPROEX 125 MG TABLET.DR PO SCH (09:00)
[2017-03-19] MEDS: LISINOPRIL 20 MG TABLET PO SCH (09:08)
[2017-03-19] MEDS: FLUOXETINE HCL 20 MG CAPSULE PO SCH (09:09)
[2017-03-19] MEDS: METOPROLOL SUCCINATE XL 25 MG TAB.SR.24H PO SCH ×2 (09:12→20:30)
[2017-03-19] MEDS: SENNOSIDES 1 TABLET PO SCH (09:12)
[2017-03-19] MEDS: DIVALPROEX 500 MG TABLET.DR PO SCH ×2 (09:16→20:30)
[2017-03-19] MEDS: ENOXAPARIN SODIUM 80 MG/0.8 ML DISP.SYRIN SQ SCH ×2 (09:17→21:00)
[2017-03-19 15:57] VITALS: BP 127/93
[2017-03-19] MEDS: WARFARIN SODIUM 4 MG TABLET PO SCH (17:04)
[2017-03-19 20:00] VITALS: BP 129/92
[2017-03-19] MEDS: QUETIAPINE FUMARATE 100 MG TABLET PO SCH (20:30)
[2017-03-19] MEDS: ZOLPIDEM 5 MG TABLET PO PRN (22:38)
[2017-03-20 07:26] LABS: BASOPHILS % (AUTO) 0.1 % (0.0-2.0); EOSINOPHILS # (AUTO) 0.4 K/uL (0.0-0.7); EOSINOPHILS % (AUTO) 3.5 % (0.0-7.0); HEMATOCRIT 50.6 % (40-50); LYMPHOCYTES # (AUTO) 2.2 K/UL (0.8-4.8); LYMPHOCYTES % (AUTO) 21.3 % (20.5-51.5); MEAN CORPUSCULAR HEMOGLOBIN 31.7 UUG (27.0-31.0); MEAN CORPUSCULAR HGB CONC 34 g/dL (32.0-37.0); MEAN CORPUSCULAR VOLUME 93.9 FL (82.0-92.0); MONOCYTES # (AUTO) 0.9 K/UL (0.1-1.30); MONOCYTES % (AUTO) 8.9 % (0.0-11.0); NEUTROPHILS # (AUTO) 6.6 K/UL (1.8-8.9); NEUTROPHILS % (AUTO) 66.2 % (38.5-71.5); PLATELET COUNT (AUTO) 223 K/UL (150-450); RED BLOOD CELL COUNT(AUTO) 5.38 MIL/UL (4.7-6.1); WHITE BLOOD COUNT (AUTO) 10.1 K/UL (4.0-11.2)
[2017-03-20 07:40] LABS: BILIRUBIN,TOTAL 0.4 mg/dL (0.2-1.0); CREATININE 1.3 mg/dL (0.6-1.3); MAGNESIUM 2.1 mg/dL (1.8-2.4); PHOSPHOROUS 2.9 mg/dL (2.5-4.9); POTASSIUM 4.2 mmol/L (3.5-5.1)
[2017-03-20 08:00] VITALS: BP 110/88
[2017-03-20] MEDS: DIVALPROEX 500 MG TABLET.DR PO SCH ×2 (08:34→20:31)
[2017-03-20] MEDS: FLUOXETINE HCL 20 MG CAPSULE PO SCH (08:34)
[2017-03-20] MEDS: LISINOPRIL 20 MG TABLET PO SCH (08:34)
[2017-03-20] MEDS: METOPROLOL SUCCINATE XL 25 MG TAB.SR.24H PO SCH ×2 (08:35→20:33)
[2017-03-20] MEDS: SENNOSIDES 1 TABLET PO SCH (08:37)
[2017-03-20] MEDS: ENOXAPARIN SODIUM 80 MG/0.8 ML DISP.SYRIN SQ SCH ×2 (08:43→20:43)
[2017-03-20 15:00] VITALS: BP 121/88
--- NOTE | 2017-03-20 16:54 | NUR ---
Consult order placed for as pt on Coumadin;assess food restrictions. There is no specific Coumadin diet, currently pt on cardiac diet Certain food can make Coumadin less effective in preventing blood clots, it is recommend to limit food source of high vitamin k such as green leafy vegetables(brussels,cabbage,kale,Spinach),modify food option in patient diet order Tolerating current diet,eating 100% of meals Anthropometry:ht is 71",current wt is 190lb,BMI 26.5-overweight, unable to assess patient as pt was asleep time of visit full assessment will be done per policy schedule Addendum: 03/20/17 at [address] Amended: Links added.
[2017-03-20] MEDS: WARFARIN SODIUM 4 MG TABLET PO SCH (17:25)
[2017-03-20] MEDS: ACETAMINOPHEN 325 MG TABLET PO PRN (20:31)
[2017-03-20] MEDS: QUETIAPINE FUMARATE 100 MG TABLET PO SCH (20:32)
[2017-03-20 21:20] VITALS: BP 127/83
[2017-03-20] MEDS: ZOLPIDEM 5 MG TABLET PO PRN (22:58)
[2017-03-21 07:30] VITALS: BP 116/88
[2017-03-21] MEDS ORDERED: FLUOXETINE HCL 20 MG CAPSULE PO SCH (09:00)
[2017-03-21] MEDS: DIVALPROEX 500 MG TABLET.DR PO SCH ×2 (09:59→21:08)
[2017-03-21] MEDS: FLUOXETINE HCL 20 MG CAPSULE PO SCH (09:59)
[2017-03-21] MEDS: METOPROLOL SUCCINATE XL 25 MG TAB.SR.24H PO SCH ×2 (10:00→21:09)
[2017-03-21] MEDS: SENNOSIDES 1 TABLET PO SCH (10:00)
[2017-03-21] MEDS: LISINOPRIL 20 MG TABLET PO SCH (10:00)
[2017-03-21] MEDS: FLUOXETINE HCL 10 MG CAPSULE PO SCH (10:00)
[2017-03-21] MEDS: ENOXAPARIN SODIUM 80 MG/0.8 ML DISP.SYRIN SQ SCH ×2 (10:04→21:13)
[2017-03-21] MEDS: HYDROCORTISONE 1% OINT 28.35 GM TUBE TOP SCH ×2 (12:15→18:20)
[2017-03-21] MEDS: LORAZEPAM 0.5 MG TABLET PO PRN ×3 (14:46→14:59)
[2017-03-21 16:00] VITALS: BP 120/88
[2017-03-21] MEDS ORDERED: LORAZEPAM 1 MG TABLET PO ONE (16:15)
--- NOTE | 2017-03-21 16:16 | NUR ---
GPS/RN- Patient irritable and anxious this afternoon, verbalizing "I Can't take it anymore, I asked to be changed from room, but no one is listening so if you see some bizarre behavior you know why". patient redirected that there are no other rooms to be able to accommodate patient to, patient was previously moved from another room for same complaint of excessive stimuli, patient was redirected frequently, irritable. PRN ativan 0.5mg was given, not effective, notified, orders received from Dr Wei for adjustment in Ativan PRN orders and Ativan 2mg PO once now, orders read back, blood pressure stable at this time.
[2017-03-21] MEDS: LORAZEPAM 1 MG TABLET PO PRN (16:25)
[2017-03-21] MEDS: WARFARIN SODIUM 4 MG TABLET PO SCH (18:20)
[2017-03-21 20:18] VITALS: BP 132/77
[2017-03-21] MEDS: QUETIAPINE FUMARATE 100 MG TABLET PO SCH (21:09)
[2017-03-22 07:30] VITALS: BP 121/78
[2017-03-22] MEDS: DIVALPROEX 500 MG TABLET.DR PO SCH ×2 (08:46→21:02)
[2017-03-22] MEDS: FLUOXETINE HCL 20 MG CAPSULE PO SCH (08:46)
[2017-03-22] MEDS: HYDROCORTISONE 1% OINT 28.35 GM TUBE TOP SCH (08:47)
[2017-03-22] MEDS: SENNOSIDES 1 TABLET PO SCH (08:47)
[2017-03-22] MEDS: FLUOXETINE HCL 10 MG CAPSULE PO SCH (08:47)
[2017-03-22] MEDS: METOPROLOL SUCCINATE XL 25 MG TAB.SR.24H PO SCH ×2 (08:47→21:03)
[2017-03-22] MEDS: LISINOPRIL 20 MG TABLET PO SCH (08:47)
[2017-03-22] MEDS: ENOXAPARIN SODIUM 80 MG/0.8 ML DISP.SYRIN SQ SCH ×2 (08:49→21:06)
[2017-03-22] MEDS ORDERED: ERGOCALCIFEROL 50,000 UNIT CAPSULE PO SCH (09:00)
[2017-03-22] MEDS: LORAZEPAM 1 MG TABLET PO PRN (13:10)
[2017-03-22] MEDS: WARFARIN SODIUM 4 MG TABLET PO SCH (18:00)
[2017-03-22] MEDS ORDERED: OLANZAPINE 10 MG VIAL IM ONE (18:30)
[2017-03-22] MEDS ORDERED: LORAZEPAM 2 MG/1 ML VIAL IM ONE (18:30)
--- NOTE | 2017-03-22 18:42 | NUR ---
Pt very agitated at this time. Slamming doors non stop. Yelling and screaming because "that's the only way I can get attention." Instructed to leave door open, and will disregard instruction and slam door again and again in loud and aggressive manner. Pt then began punching siderail of bed very aggressively. When asked why he was doing that, pt denies doing anything wrong, states, "I don't know what you're talking about, I'm just laying here quietly." Continues to have bizarre and paranoid behavior. Pt then proceeds to make threats regarding physical environment, stating he will get the tray table and break the glass window. Dr. Wei called and informed, received order for Zyprexa 10mg IM and Ativan 1mg IM. Noted and carried out with security present.
[2017-03-22 20:19] VITALS: BP 114/72
[2017-03-22] MEDS: QUETIAPINE FUMARATE 100 MG TABLET PO SCH (21:03)
--- NOTE | 2017-03-23 07:26 | NUR ---
patient slept for approx 9.00 hrs through the night. No aggressive or combative Bx noted during the shift. Patient compliant with medication regiment and plan of care, we will continue to monitor.
[2017-03-23 07:30] VITALS: BP 101/54
[2017-03-23] MEDS: METOPROLOL SUCCINATE XL 25 MG TAB.SR.24H PO SCH ×2 (09:00→20:21)
[2017-03-23] MEDS: LISINOPRIL 20 MG TABLET PO SCH (09:00)
[2017-03-23] MEDS: FLUOXETINE HCL 20 MG CAPSULE PO SCH (09:33)
[2017-03-23] MEDS: FLUOXETINE HCL 10 MG CAPSULE PO SCH (09:33)
[2017-03-23] MEDS: SENNOSIDES 1 TABLET PO SCH (09:33)
[2017-03-23] MEDS: DIVALPROEX 500 MG TABLET.DR PO SCH ×2 (09:33→20:21)
[2017-03-23] MEDS: ENOXAPARIN SODIUM 80 MG/0.8 ML DISP.SYRIN SQ SCH ×2 (09:35→20:23)
[2017-03-23] MEDS: LORAZEPAM 1 MG TABLET PO PRN ×2 (11:35→18:27)
[2017-03-23 16:00] VITALS: BP 121/83
[2017-03-23] MEDS: WARFARIN SODIUM 4 MG TABLET PO SCH (17:14)
[2017-03-23 20:00] VITALS: BP 116/82
[2017-03-23] MEDS: QUETIAPINE FUMARATE 100 MG TABLET PO SCH (20:22)
[2017-03-24] MEDS: ZOLPIDEM 5 MG TABLET PO PRN (01:29)
[2017-03-24 07:30] VITALS: BP 132/78
[2017-03-24] MEDS: LISINOPRIL 20 MG TABLET PO SCH (08:07)
[2017-03-24] MEDS: FLUOXETINE HCL 20 MG CAPSULE PO SCH (08:07)
[2017-03-24] MEDS: METOPROLOL SUCCINATE XL 25 MG TAB.SR.24H PO SCH ×2 (08:08→20:24)
[2017-03-24] MEDS: DIVALPROEX 500 MG TABLET.DR PO SCH ×2 (08:08→20:23)
[2017-03-24] MEDS: SENNOSIDES 1 TABLET PO SCH (08:08)
[2017-03-24] MEDS: FLUOXETINE HCL 10 MG CAPSULE PO SCH (08:08)
[2017-03-24] MEDS: ENOXAPARIN SODIUM 80 MG/0.8 ML DISP.SYRIN SQ SCH (09:00)
[2017-03-24] MEDS: LORAZEPAM 1 MG TABLET PO PRN (13:26)
--- NOTE | 2017-03-24 14:01 | NUR ---
GPS.RN- AM LOVENOX withheld at this time, INR 2.39 therapeutic level, awaiting medical to review meds and INR , patient to be on combination of Lovenox and Coumadin only until reaching therapeutic range, patient within therapeutic range.
--- NOTE | 2017-03-24 14:40 | NUR ---
GPS./RN- Patient anxious, pounding on table in dining room, patient verbalizing "look at the time it is you can't keep me from my son he visits me every Saturday at this time", patient redirected for emotional support, patient pounding on wall. orders received to give Zyprexa 10mg PO Once
[2017-03-24] MEDS ORDERED: OLANZAPINE 5 MG TABLET PO ONE (14:45)
[2017-03-24 15:40] VITALS: BP 110/81
[2017-03-24] MEDS: WARFARIN SODIUM 4 MG TABLET PO SCH (17:26)
[2017-03-24 20:00] VITALS: BP 115/79
[2017-03-24] MEDS: QUETIAPINE FUMARATE 100 MG TABLET PO SCH (20:24)
[2017-03-25] MEDS: ZOLPIDEM 5 MG TABLET PO PRN ×2 (00:49→22:28)
[2017-03-25 07:30] VITALS: BP 117/74
[2017-03-25] MEDS: LISINOPRIL 20 MG TABLET PO SCH (09:17)
[2017-03-25] MEDS: SENNOSIDES 1 TABLET PO SCH (09:17)
[2017-03-25] MEDS: DIVALPROEX 500 MG TABLET.DR PO SCH ×2 (09:17→20:15)
[2017-03-25] MEDS: FLUOXETINE HCL 20 MG CAPSULE PO SCH (09:17)
[2017-03-25] MEDS: METOPROLOL SUCCINATE XL 25 MG TAB.SR.24H PO SCH ×2 (09:18→20:15)
[2017-03-25] MEDS: FLUOXETINE HCL 10 MG CAPSULE PO SCH (09:18)
[2017-03-25 15:35] VITALS: BP 119/78
[2017-03-25] MEDS: WARFARIN SODIUM 4 MG TABLET PO SCH (17:33)
[2017-03-25] MEDS: LORAZEPAM 1 MG TABLET PO PRN (18:17)
[2017-03-25] MEDS: ACETAMINOPHEN 325 MG TABLET PO PRN (18:17)
[2017-03-25 20:00] VITALS: BP 120/74
[2017-03-25] MEDS: QUETIAPINE FUMARATE 100 MG TABLET PO SCH (20:15)
[2017-03-25] MEDS ORDERED: ZOLPIDEM 5 MG TABLET PO ONE (22:30)
[2017-03-26] MEDS: ACETAMINOPHEN 325 MG TABLET PO PRN (03:34)
[2017-03-26] MEDS: LORAZEPAM 1 MG TABLET PO PRN ×2 (03:34→08:55)
[2017-03-26 07:30] VITALS: BP 114/72
--- NOTE | 2017-03-26 08:51 | NUR ---
DC Note: The patient will be discharged today to [facility] [[place] [address]; ]. Spoke with Betty in admissions at the facility who stated that they will be accepting the patient today. BLAKE spoke with the patient and he is aware and agreeable with the discharge plan. BLAKE spoke with the patient's ex- Cori Manrique (per his permission) and informed her of the patient's discharge plan. The patient will follow-up at the facility with land agent Dr. Shlomo Chand and psychiatrist Dr. Bairon eWi. The patient was provided with the brief intervention for substance abuse and was referred to [facility] , [facility] , and [facility] . Addendum: 03/26/17 at 0917 by TERRIE LOZANO Spoke with the patient's bilingual case manager, Monty with the [facility] ext [phone]. She stated that the patient may return to his apartment but that the patient has not paid his rent for the month of February or March ($360 per month) and that he must send a check or money order to [[address] [place] [address]]. She stated that he must put in the mehul tenant code [id number]. She also stated that they have created a new warren for him and left it with the front end specialist so that he can have access to his apartment when he returns.
[2017-03-26] MEDS: FLUOXETINE HCL 10 MG CAPSULE PO SCH (08:55)
[2017-03-26] MEDS: SENNOSIDES 1 TABLET PO SCH (08:55)
[2017-03-26] MEDS: FLUOXETINE HCL 20 MG CAPSULE PO SCH (08:55)
[2017-03-26 08:56] VITALS: BP 114/72
[2017-03-26] MEDS: METOPROLOL SUCCINATE XL 25 MG TAB.SR.24H PO SCH (08:56)
[2017-03-26] MEDS: LISINOPRIL 20 MG TABLET PO SCH (08:56)
[2017-03-26] MEDS: DIVALPROEX 500 MG TABLET.DR PO SCH (08:58)
--- NOTE | 2017-03-26 10:50 | NUR ---
called in report to [facility]. spoke and given report to Maribel SOLOMON. informed patient will be picked up at 11 is scheduled pick remover time.
--- NOTE | 2017-03-26 11:03 | NUR ---
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 discharge paperwork has already been signed and given to patient. discharge envelope also given to med response. patient has been discharged with belongings and has signed all discharge paperwork. report given to ambulance.
== END 2017-03-26 11:10 | DRG 884 ==
LOC: ER 18:09 → MERGE 21:23 → GPS 21:23
PROVIDERS: ADMIT Psychiatry & Neurology Psychiatry; ATTEND Psychiatry & Neurology Psychiatry
DX: F06.8 Other specified mental disorders due to known physiological condition (principal); D68.2 Hereditary deficiency of other clotting factors; N17.0 Acute kidney failure with tubular necrosis; D68.59 Other primary thrombophilia; F19.20 Other psychoactive substance dependence, uncomplicated; F10.259 Alcohol dependence with alcohol-induced psychotic disorder, unspecified; Z86.718 Personal history of other venous thrombosis and embolism; I10 Essential (primary) hypertension; Z81.8 Family history of other mental and behavioral disorders; Z79.01 Long term (current) use of anticoagulants; Z79.899 Other long term (current) drug therapy; F11.21 Opioid dependence, in remission; F10.21 Alcohol dependence, in remission; Y90.9 Presence of alcohol in blood, level not specified; F31.9 Bipolar disorder, unspecified; M19.90 Unspecified osteoarthritis, unspecified site; K59.00 Constipation, unspecified; L30.9 Dermatitis, unspecified; D75.1 Secondary polycythemia; M41.9 Scoliosis, unspecified; M47.814 Spondylosis without myelopathy or radiculopathy, thoracic region
CPT/HCPCS: 36415; 70450; 71010; 80164; 80307; 83690; 83735; 84100; 84443; 85025; 85610; 85730; 93005; G0480; G0480-TC; J1650; J2060; J2358; J3490